=== PATIENT | male | born 1980 | race Two or more races ===

== ENCOUNTER 2016-07-25 09:40 | Emergency (ER) | payer SELFPAY ==
[2016-07-25 09:54] VITALS: BP 112/68
[2016-07-25] MEDS ORDERED: Acetaminophen 325 MG Tab PO ONE (10:14)
--- NOTE | 2016-07-25 10:40 | EDM.PDOC ---
ED HPI HEADACHE COMPLAINT - General Chief Complaint: Headache Stated Complaint: NECK PAIN Time Seen by Provider: 07/25/16 10:01 Source of Information: Reports: Patient, RN notes reviewed - History of Present Illness INITIAL COMMENTS - FREE TEXT/NARRATIVE: 36-year-old male has been having difficulty with neck and back discomfort for about 2 months. Pain has been in the mid back and then also the base of his neck intermittently but present most of the time. The neck discomfort has worsened over the past one to 2 weeks and now also having comfort of the right side of his head posteriorly and also above the ear. He states there is pounding and throbbing associated with that. The headache was so bothersome last night that he had difficulty sleeping. No focal neurologic symptoms, no visual difficulty. He denies history of chronic headaches. - Related Data Allergies/ADRs: Allergies Allergy/AdvReac Type Severity Reaction Status Date / Time IV contrast Allergy Swollen Uncoded 07/25/16 09:54 Eyes Home Meds: Home Meds . [No Known Home Meds] 07/25/16 [History] Past Medical History - Past Health History Medical/Surgical History: Denies Medical/Surgical History HEENT History: Reports: None Genitourinary History: Reports: Renal calculus Musculoskeletal History: Reports: Back pain, chronic Other Musculoskeletal History: states had back pain years ago from working too much and recieved muscle relaxers for it. Psychiatric History: Reports: None - Past Surgical History Male Surgical History: Reports: Renal Calculus Social & Family History - Family History Family Medical History: Noncontributory - Tobacco Use Smoking Status *Q: Current Some Day Smoker Years of Tobacco use: 20 Packs/Tins Daily: 0.5 Used Tobacco, but Quit: Yes Month Tobacco Last Used: 12/04 - Caffeine Use Caffeine Use: Reports: None - Recreational Drug Use Recreational Drug Use: No - Living Situation & Occupation Living situation: Reports: Occupation: employed ED ROS GENERAL - Review of Systems Review Of Systems: See Below Constitutional: Denies: fever, chills, diaphoresis HEENT: Denies: Ear pain, Sinus problem, Throat pain, Vertigo, Vision change Respiratory: Denies: shortness of breath Cardiovascular: Denies: Chest pain GI/Abdominal: Denies: Abdominal pain, Nausea, Vomiting Skin: Reports: no symptoms Neurological: Reports: headache. Denies: numbness, tingling, trouble speaking, difficulty walking, weakness - Physical Exam Exam: See Below General Appearance: alert, mild distress Eye Exam: bilateral eye: PERRL Ears: normal external exam Nose: normal inspection Throat/Mouth: Normal inspection, Normal oropharynx Head Exam: atraumatic, scalp tenderness (mild right-sided). No: facial swelling Neck: supple, full range of motion, tender lateral. No: lymphadenopathy (L), lymphadenopathy (R) Respiratory/Chest: lungs clear Cardiovascular: regular rate, rhythm Neuro Exam (Abbreviated): alert, oriented, no motor/sensory deficits, other ( finger to nose testing normal) Back Exam: paraspinal tenderness (mild lower and mid back). No: vertebral tenderness Extremities: normal inspection, normal range of motion Skin Exam: Warm, Dry, Normal color, No rash Course - Vital Signs Last Recorded V/S: Last Vital Signs Temp 97.0 F 07/25/16 09:46 Pulse 68 07/25/16 09:46 Resp 14 07/25/16 09:46 BP 112/68 07/25/16 09:46 Pulse Ox 98 07/25/16 09:46 - Orders/Labs/Meds Meds: Medications Discontinued Medications Generic Name Dose Route Start Last Admin Trade Name Usama PRN Reason Stop Dose Admin Acetaminophen 975 mg 07/25/16 10:14 07/25/16 10:19 Tylenol PO 07/25/16 10:15 975 mg NOW ONE Administration - Re-Assessments/Exams Free Text/Narrative Re-Assessment/Exam: 07/25/16 11:[address] is come back normal. This does truly looked primarily musculoskeletal. Have discussed with patient and his . We'll treat with Naprosyn 500 mg twice a day, Tylenol in between doses for extra pain relief as needed. Discharge instructions as documented Departure - Departure Time of Disposition: 11:16 Disposition: Home, Self-Care 01 Clinical Impression: Cervical myofascial strain Qualifiers: Encounter type: initial encounter Qualified Code(s): S16.1XXA - Strain of muscle, fascia and tendon at neck level, initial encounter Headache Qualifiers: Headache type: unspecified Headache chronicity pattern: acute headache Forms: ED Department Discharge Additional Instructions: Naprosyn 500 mg twice daily, he may take Tylenol or acetaminophen in addition to 3 times daily if needed for extra pain relief, alternate ice packs and heat as needed for symptomatic relief, followup clinic if not much better within 5- 10 days as expected, return to ED as needed
--- NOTE | 2016-07-25 10:49 | CT ---
Head CT Technique: Multiple axial sections through the brain were obtained. Intravenous contrast was not utilized. Comparison: No previous intracranial imaging. Findings: Ventricles along with basal cisterns and sulci over the convexities are within normal limits for the patient's age. Small low density abnormality is seen within the left basal ganglia. No other abnormal parenchymal densities are seen. No evidence of intracranial hemorrhage. No midline shift or mass effect is seen. Bone window settings were reviewed which shows the mastoid sinuses and middle ear cavities to appear clear. Visualized paranasal sinuses are clear. No acute calvarial abnormality is seen. Impression: 1. Minimal low-density area within the left basal ganglia suspicious for old lacunar infarct. 2. Noncontrast head CT study is otherwise unremarkable. Diagnostic code #2
== END 2016-07-25 11:40 | disposition home or self-care (01) ==
LOC: JD.ED 09:40
DX: S16.1XXA Strain of muscle, fascia and tendon at neck level, initial encounter (principal); R51 Headache; Z91.041 Radiographic dye allergy status
CPT/HCPCS: 70450; 99284; A9270; 99283

== ENCOUNTER 2016-08-06 02:53 | Emergency (ER) | payer SELFPAY ==
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
[2016-08-06] MEDS ORDERED: Sodium Chloride 0.9% 1,000 ML IV SCH (03:30)
[2016-08-06 05:32] VITALS: BP 115/72
--- NOTE | 2016-08-08 10:31 | CT ---
CT abdomen and pelvis Technique: Multiple axial sections were obtained from above the kidneys inferiorly through the pubic symphysis. Intravenous and oral contrast was not utilized. Study has been performed as a ureteral stone protocol. Comparison: No previous study. Findings: Visualized lung bases show nothing acute. Visualized noncontrast liver shows no focal parenchymal abnormality. Spleen appears within normal limits in size. Adrenal glands show no nodule. Pancreas is within normal limits. Gallbladder shows no calcified gallstones. Aorta shows no aneurysmal dilatation. No retroperitoneal adenopathy is seen. No mesenteric abnormalities are seen. Appendix is seen which appears normal in size. Several minimal colonic diverticuli are seen. No pelvic mass or adenopathy is seen. No free fluid or inflammatory changes seen. Right and left kidneys show no abnormal calcifications. No ureteral dilatation is seen. No abnormal calcifications are seen along the course of the ureters. Bone window settings were reviewed which appear within normal limits for the patient's age. Impression: 1. No renal calculi, ureteral dilatation or ureteral stone is seen. 2. Nothing acute is seen on noncontrast CT study of the abdomen and pelvis. Agree with preliminary report issued by [id number] (preliminary [facility] report dictated on 08/06/16, 5:49 AM Central Time) Diagnostic code #2
== END 2016-08-06 05:30 | disposition home or self-care (01) ==
LOC: JD.ED 02:53
DX: R10.31 Right lower quadrant pain (principal); Z91.041 Radiographic dye allergy status; F17.210 Nicotine dependence, cigarettes, uncomplicated
CPT/HCPCS: 36415; 74176; 80053; 81001; 83690; 85025; 96360; 96361; 99284; J7040; 99282

== ENCOUNTER 2017-07-23 17:38 | Emergency (ER) | payer SELFPAY ==
[2017-07-23 17:52] VITALS: BP 118/75
--- NOTE | 2017-07-23 18:12 | EDM.PDOC ---
ED HPI GENERAL MEDICAL PROBLEM - General Chief Complaint: Upper Extremity Injury/Pain Stated Complaint: R HAND INJURY Time Seen by Provider: 07/23/17 17:52 Source of Information: Reports: Patient History Limitations: Reports: No Limitations - History of Present Illness INITIAL COMMENTS - FREE TEXT/NARRATIVE: 37-year-old male presents for evaluation and treatment of injury to the right wrist. Patient reports this morning he slipped and fell on some ice. He states that he fell on an outstretched hand. Is currently complaining of pain to the right wrist. Pain with supination and pronation. Able to flex and extend the wrist without any pain. Identifies pain to the right distal ulna. No numbness or tingling. Patient is right-handed. No previous injury to the right wrist. Onset: Today Location: Reports: Upper Extremity, Right Right Wrist Pain Score (Numeric/FACES): 8 - Related Data Allergies Allergy/AdvReac Type Severity Reaction Status Date / Time Iodinated Contrast- Oral and Allergy Swollen Verified 07/23/17 17:49 IV Dye Eyes [Iodinated Contrast Media - Oral and] Home Meds: Home Meds . [No Known Home Meds] 07/25/16 [History] Past Medical History - Past Health History Medical/Surgical History: Denies Medical/Surgical History HEENT History: Reports: None Genitourinary History: Reports: Renal Calculus Musculoskeletal History: Reports: Back Pain, Chronic Other Musculoskeletal History: states had back pain years ago from working too much and recieved muscle relaxers for it. Psychiatric History: Reports: None - Past Surgical History Male Surgical History: Reports: Renal Calculus Social & Family History - Family History Family Medical History: Noncontributory - Tobacco Use Smoking Status *Q: Former Smoker Years of Tobacco use: 10 Packs/Tins Daily: 0.5 Used Tobacco, but Quit: Yes Month Tobacco Last Used: 1 year ago quit - Caffeine Use Caffeine Use: Reports: Coffee, Soda - Recreational Drug Use Recreational Drug Use: No - Living Situation & Occupation Living situation: Reports: , with Spouse, with Family Occupation: Employed Review of Systems - Review of Systems Review Of Systems: See Below Musculoskeletal: Reports: Hand Pain (right wrist pain), Joint Swelling (right wrist) Neurological: Denies: Numbness, Tingling ED EXAM, GENERAL - Physical Exam Exam: See Below Exam Limited By: No Limitations General Appearance: Alert, WD/WN, No Apparent Distress Respiratory/Chest: No Respiratory Distress, Lungs Clear, Normal Breath Sounds Cardiovascular: Normal Peripheral Pulses, Regular Rate, Rhythm, No Murmur Peripheral Pulses: 2+: Radial (L), Radial (R) Extremities: Normal Inspection, Normal Capillary Refill, Limited Range of Motion (pain with supination and pronation; able to completely flex and extend wrist), Other (mild tenderness to palpation of the right distal ulna, no snuff box tenderness; swelling to the right wrist) Neurological: Alert, Oriented, Normal Cognition Psychiatric: Normal Affect, Normal Mood Skin Exam: Warm, Dry, Normal Color Course - Vital Signs Last Recorded V/S: Last Vital Signs Temp 36.3 C 07/23/17 17:50 Pulse 64 07/23/17 17:50 Resp 13 07/23/17 17:50 BP 118/75 07/23/17 17:50 Pulse Ox 100 07/23/17 17:50 - Radiology Interpretation Free Text/Narrative:: xray of the right wrist reviewed by myself and Dr. Ortiz. No acute fractures or dislocations noted. - Re-Assessments/Exams Free Text/Narrative Re-Assessment/Exam: 07/23/17 19:01 I reviewed the x-ray results with patient. I'll put him in a wrist splint. Follow-up with family med if not better. 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 Discharge instructions as documented. Departure - Departure Time of Disposition: 19:09 Disposition: Home, Self-Care 01 Condition: Fair Clinical Impression: Fall, Wrist pain, right - Discharge Information Instructions: Wrist Sprain, Adult Referrals: PCP,None [Primary Care Provider] - Taco Braga PA-C [Physician [employer] Pr[employer] Operator] - Forms: ED Department Discharge Additional Instructions: Wear the wrist splints as needed for discomfort. Ice the wrist several times a day to help reduce swelling. Elevate, above the level the heart to help reduce swelling. Tylenol or Motrin as needed for pain and discomfort. If You continue to have discomfort beyond 1 week follow-up with family medicine. Recommend Dr. Mcclellan or Taco Braga at the [facility] [place]. Call [phone] schedule fronted these providers. Please return to the ER if your symptoms change or worsen.
--- NOTE | 2017-07-24 10:05 | CR ---
Right wrist: Four views of the right wrist were obtained. Comparison: No prior wrist exam. Fracture is identified in a vertical orientation involving the radial side of the distal ulna. Articular extension is seen. Joint spaces are preserved. No additional fracture or other abnormality is appreciated. Impression: 1. Distal right radial fracture as noted above. Diagnostic code #2
== END 2017-07-23 19:20 | disposition home or self-care (01) ==
LOC: JD.ED 17:38
DX: S52.501A Unspecified fracture of the lower end of right radius, initial encounter for closed fracture (principal); Z87.891 Personal history of nicotine dependence; Z91.041 Radiographic dye allergy status; W00.0XXA Fall on same level due to ice and snow, initial encounter
CPT/HCPCS: 73110-26-RT; 73110-RT; 99283

== ENCOUNTER 2017-07-25 19:19 | Emergency (ER) | payer SELFPAY ==
[2017-07-25 19:47] VITALS: BP 132/78
--- NOTE | 2017-07-25 20:28 | EDM.PDOC ---
ED HPI GENERAL MEDICAL PROBLEM - General Chief Complaint: Upper Extremity Injury/Pain Stated Complaint: R HAND PAIN Time Seen by Provider: 07/25/17 19:55 Source of Information: Reports: Patient History Limitations: Reports: No Limitations - History of Present Illness INITIAL COMMENTS - FREE TEXT/NARRATIVE: Patient returns the ED to have a fiberglass splint applied for a right distal radius fracture. Patient fell on the ice landing on the affected extremity. X- ray of the right wrist obtained at that time initial interpretation did not reveal obvious fracture. Removal wrist splint was applied with discharge instructions. Patient has not been wearing the splint as prescribed. Continues to have mild/moderate pain along the dorsal aspect of the wrist. 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 [No Known Home Meds] 07/25/16 [History] Past Medical History - Past Health History Medical/Surgical History: Denies Medical/Surgical History HEENT History: Reports: None Genitourinary History: Reports: Renal Calculus Musculoskeletal History: Reports: Back Pain, Chronic Other Musculoskeletal History: states had back pain years ago from working too much and recieved muscle relaxers for it. Psychiatric History: Reports: None - Past Surgical History Male Surgical History: Reports: Renal Calculus Social & Family History - Family History Family Medical History: Noncontributory - Tobacco Use Smoking Status *Q: Never Smoker Years of Tobacco use: 10 Packs/Tins Daily: 0.5 Used Tobacco, but Quit: Yes Month Tobacco Last Used: 1 year ago quit Second Hand Smoke Exposure: No - Caffeine Use Caffeine Use: Reports: Coffee - Recreational Drug Use Recreational Drug Use: No - Living Situation & Occupation Living situation: Reports: , with Spouse, with Family Occupation: Employed Review of Systems - Review of Systems Review Of Systems: ROS reveals no pertinent complaints other than HPI. ED EXAM, GENERAL - Physical Exam Exam: See Below Exam Limited By: No Limitations General Appearance: Alert, WD/WN, No Apparent Distress Ears: Hearing Grossly Normal Nose: Normal Inspection Throat/Mouth: Normal Voice, No Airway Compromise Neck: Normal Inspection, Supple Respiratory/Chest: No Respiratory Distress, No Accessory Muscle Use Cardiovascular: Normal Peripheral Pulses, Regular Rate, Rhythm Peripheral Pulses: 4+: Radial (R) Extremities: Other (Pain along the dorsal last to the right wrist and also scaphoid process. Mild swelling present. Decreased range of motion noted. No sensory/motor deficits distally.) Neurological: Alert, Oriented, Normal Cognition, No Motor/Sensory Deficits Psychiatric: Normal Affect, Normal Mood Skin Exam: Warm, Dry, Intact, Normal Color, No Rash ED TRAUMA EXTREMITY PROCEDURES - Splinting Right Upper Extremity Pre-Procedure NV Status: Normal Post-Procedure NV Status: Normal Splint Material: Fiberglass Splint Design: Thumb Spica Applied & Form Fitted By: Provider Provider Post-Splint Application NV Check: NV Status Normal, Good Position Complications: No Course - Vital Signs Last Recorded V/S: Last Vital Signs Temp 98.3 F 07/25/17 19:40 Pulse 72 07/25/17 19:40 Resp 18 07/25/17 19:40 BP 132/78 07/25/17 19:40 Pulse Ox 97 07/25/17 19:40 - Re-Assessments/Exams Free Text/Narrative Re-Assessment/Exam: Patient returns to ED to have a fiber glass splint placed. He has a distal right radial fracture. On examination he does have some scaphoid tenderness. Thumb spica splint applied with known neurological changes. Will discharge patient home with instructions as documented. Departure - Departure Time of Disposition: 20:27 Disposition: Home, Self-Care 01 Clinical Impression: Fracture of radius Qualifiers: Encounter type: subsequent encounter Radius location: distal Fracture type: closed Fracture morphology: unspecified fracture morphology Laterality: right Fracture healing: with routine healing Qualified Code(s): S52.501D - Unspecified fracture of the lower end of right radius, subsequent encounter for closed fracture with routine healing - Discharge Information Instructions: Radial Fracture Referrals: Alexis Riggs MD [Physician] - Forms: ED Department Discharge, ED Return to Work/School Form Additional Instructions: Follow-up with Dr. Riggs Orthopedic Surgeon this following week for reevaluation and application of fiberglass cast. Keep splint in place until evaluated by Dr. Riggs. Elevate when able to reduce any swelling and pain. Apply ice to the affected area 4 times daily, 20 minutes in duration, do not apply directly on the skin. Take Tylenol and ibuprofen in alternating fashion for pain. Return to the ED if you develop any new or worsening symptoms.
== END 2017-07-25 20:35 | disposition home or self-care (01) ==
LOC: JD.ED 19:19
DX: S52.501A Unspecified fracture of the lower end of right radius, initial encounter for closed fracture (principal); Z87.891 Personal history of nicotine dependence; Z91.041 Radiographic dye allergy status; W00.0XXA Fall on same level due to ice and snow, initial encounter
CPT/HCPCS: 29125; 99282; 99283-25